=== PATIENT | male | born 1990 | race African-American/Black ===

== ENCOUNTER 2020-11-19 07:12 | Emergency (ER) | payer SELFPAY ==
[~2020-11-19] VITALS: Ht 177.8 cm; Wt 100.0 kg
[2020-11-19] MEDS: ALBUTEROL (0.083%) 2.5MG/3ML NEB HHN STA (08:20)
[2020-11-19] MEDS ORDERED: ALBU6.7H11 INH (08:39)
[2020-11-19 08:57] VITALS: BP 129/93
== END 2020-11-19 08:57 | disposition home or self-care (01) ==
LOC: ER 07:12
DX: J98.01 Acute bronchospasm (principal); I49.9 Cardiac arrhythmia, unspecified
CPT/HCPCS: 71045; 93005; 94640; 99283; Z7610